=== PATIENT | male | born 1975 | race Caucasian/White ===

== ENCOUNTER 2020-04-18 20:29 | Emergency (ER) | payer OTHER ==
[~2020-04-18] VITALS: Ht 170.2 cm; Wt 76.0 kg
--- NOTE | 2020-04-18 21:22 | NUR ---
PT IN GOWN IN [facility]. DR HOPSON AT BS. PT EDUCATED ON NEED TO NOT COVER HIMSELF WITH XTRA CLOTHING, AND VERBALIZES UNDERSTANDING OF WHY THIS RN WON'T PROVIDE BLANKET AT THIS TIME. ORDERS RECEIVED FOR ANTIPYRETICS. PT VERBALIZES UNDERSTANDING OF POC. PT ATTACHED TO VS MONITORS AT THIS TIME. XRAY AT BS AT THIS TIME WITH PT.
[2020-04-18] MEDS ORDERED: ACETAMINOPHEN 325 MG TABLET ONE (21:24)
[2020-04-18] MEDS ORDERED: IBUPROFEN 600 MG TABLET ONE (21:24)
[2020-04-18] MEDS ORDERED: ONDANSETRON ODT 4 MG ONE (21:25)
--- NOTE | 2020-04-18 21:28 | NUR ---
PT MEDICATED PER MAR AT THIS TIME.
[2020-04-18] MEDS ORDERED: ONDANSETRON 2MG/ML, 2ML IVPush ONE (21:30)
[2020-04-18] MEDS ORDERED: ACETAMINOPHEN 325 MG TABLET PO ONE (21:30)
[2020-04-18] MEDS ORDERED: SODIUM CHLORIDE FLUSH 10ML SYR IVF ONE (21:30)
[2020-04-18] MEDS ORDERED: SODIUM CHLORIDE 0.9% 1,000ML IVBOLUS ONE (21:30)
[2020-04-18] MEDS ORDERED: IBUPROFEN 600 MG TABLET PO ONE (21:30)
--- NOTE | 2020-04-18 21:53 | NUR ---
PIV ACCESS ESTABLISHED. BC X 1 AND LABS DRAWN AT THIS TIME. IV FLUIDS INITIATED PER MAY. PT RESTING COMFORTABLY IN [facility] ATTACHED TO CARDIAC AND VS MONITORS. VSS AT THIS TIME. PT HAS CALL LIGHT WITHIN REACH.
[2020-04-18] MEDS ORDERED: OMNIPAQUE 350 MG/ML, 100ML BOTTLE ONE (22:00)
[2020-04-18 22:30] LABS: ALANINE AMINOTRANSFERASE 86 U/L (12-78); ALBUMIN 3.7 g/dL (3.4-5.0); ANION GAP 4 mmol/L (5-15); CHLORIDE 101 mmol/L (98-107)
[2020-04-18 22:32] LABS: ALKALINE PHOSPHATASE 152 U/L (45-117); BILIRUBIN,TOTAL 0.3 mg/dL (0.2-1.0); TOTAL PROTEIN 7.7 g/dL (6.4-8.2)
--- NOTE | 2020-04-18 22:51 | NUR ---
pt to vt via [facility] at this time.
[2020-04-18 22:56] LABS: BASOPHILS % (AUTO) 0 % (0-1); EOSINOPHILS % (AUTO) 0 % (1-7); LYMPHOCYTES % (AUTO) 10 % (22-44); MEAN CORPUSCULAR HGB CONC 35.2 g/dL (33.2-36.2); MEAN PLATELET VOLUME 9.4 fL (7.4-10.4); MONOCYTES % (AUTO) 8 % (2-9); NEUTROPHILS % (AUTO) 82 % (42-75); PLATELET COUNT 112 x10^3/uL (130-400); RED BLOOD COUNT 4.73 x10^6/uL (4.38-5.82); RED CELL DISTRIBUTION WIDTH 12.7 % (9.4-14.8)
[2020-04-18 23:01] LABS: MD NO
[2020-04-19 00:51] VITALS: BP 132/74
== END 2020-04-19 00:53 | disposition home or self-care (01) ==
LOC: ED 23:14
DX: U07.1 COVID-19 (principal); J12.9 Viral pneumonia, unspecified; R50.9 Fever, unspecified; R05 Cough; M79.10 Myalgia, unspecified site; R06.02 Shortness of breath; R11.2 Nausea with vomiting, unspecified
CPT/HCPCS: 36415; 71045; 71275; 80053; 83605; 85025; 87040; 96361; 96374; 99285; J2405; J7030; Q9967

== ENCOUNTER 2020-04-21 14:37 | Inpatient (IN) | payer OTHER ==
[~2020-04-21] VITALS: Ht 172.7 cm; Wt 76.8 kg
--- NOTE | 2020-04-21 15:20 | NUR ---
RN at bedside, provider at bedside. Pt diaphoretic, flushed, tachypnic. Hooked up to metal smelter. 02 sats 90% RA, placed on 2L nasal cannula.
[2020-04-21] MEDS ORDERED: SODIUM CHLORIDE 0.9% 1,000ML IVBOLUS ONE (15:30)
--- NOTE | 2020-04-21 15:57 | NUR ---
PT HAS POS COVID. SYMPTOMS WEAKNESS, FEVER, SOB, COUGH. FEELING HORRIBLE. 10 DAY. PT IS FLUSHED, NOT IN RESP DISTRESS, DENIES CP. NO N/V PIV, LABS, BLOOD CULUTRES. IVF
[2020-04-21 16:03] LABS: BASOPHILS % (AUTO) 0 % (0-1); EOSINOPHILS % (AUTO) 0 % (1-7); LYMPHOCYTES % (AUTO) 8 % (22-44); MEAN CORPUSCULAR HGB CONC 35.3 g/dL (33.2-36.2); MEAN PLATELET VOLUME 9.1 fL (7.4-10.4); MONOCYTES % (AUTO) 8 % (2-9); NEUTROPHILS % (AUTO) 84 % (42-75); PLATELET COUNT 147 x10^3/uL (130-400); RED BLOOD COUNT 4.75 x10^6/uL (4.38-5.82); RED CELL DISTRIBUTION WIDTH 12.7 % (9.4-14.8)
[2020-04-21 16:08] LABS: MD NO
[2020-04-21 16:20] LABS: ALBUMIN 3.5 g/dL (3.4-5.0); ANION GAP 8 mmol/L (5-15); CALCIUM 8.5 mg/dL (8.5-10.1); CHLORIDE 102 mmol/L (98-107)
[2020-04-21 16:27] LABS: ALANINE AMINOTRANSFERASE 81 U/L (12-78); ALKALINE PHOSPHATASE 160 U/L (45-117); BILIRUBIN,TOTAL 0.6 mg/dL (0.2-1.0); CREATININE 1.26 mg/dL (0.7-1.3); TOTAL PROTEIN 8.1 g/dL (6.4-8.2)
[2020-04-21 16:47] LABS: D-DIMER (DIC) 0.69 ug/mlFEU (0.00-0.52)
[2020-04-21] MEDS ORDERED: CEFTRIAXONE PMX 1GM/50ML 50 ML IVPB ONE (17:00)
[2020-04-21] MEDS ORDERED: DOXYCYCLINE 100MG TABLET PO ONE (17:00)
[2020-04-21] MEDS ORDERED: ACETAMINOPHEN 500 MG TABLET PO ONE (17:00)
[2020-04-21] MEDS ORDERED: DEXAMETHASONE 4 MG/ML, 1ML IV ONE (17:00)
[2020-04-21] MEDS ORDERED: DEXAMETHASONE 4 MG/ML, 1ML ONE (17:03)
[2020-04-21] MEDS ORDERED: ACETAMINOPHEN 500 MG TABLET ONE (17:03)
[2020-04-21] MEDS ORDERED: CEFTRIAXONE PMX 1GM/50ML 50 ML ONE (17:03)
[2020-04-21] MEDS ORDERED: DOXYCYCLINE 100MG TABLET ONE (17:03)
[2020-04-21] MEDS ORDERED: THIAMINE 100MG TABLET ONE (17:12)
[2020-04-21] MEDS: ASCORBIC ACID 500 MG TABLET PO SCH (17:13)
[2020-04-21] MEDS ORDERED: ASCORBIC ACID 500 MG TABLET ONE (17:13)
[2020-04-21] MEDS ORDERED: GABA600T7 PO (17:16)
[2020-04-21] MEDS ORDERED: CARB200T PO (17:16)
[2020-04-21] MEDS ORDERED: ACETAMINOPHEN 325 MG TABLET PO PRN (17:30)
[2020-04-21] MEDS ORDERED: THIAMINE 100MG TABLET PO ONE (17:30)
[2020-04-21] MEDS ORDERED: ENALAPRILAT 1.25 MG/ML, 2ML IVPush PRN (17:30)
[2020-04-21] MEDS ORDERED: ONDANSETRON 2MG/ML, 2ML IVPush PRN (17:30)
[2020-04-21] MEDS ORDERED: SODIUM CHLORIDE FLUSH 10ML SYR IVF PRN (17:30)
[2020-04-21] MEDS ORDERED: ONDANSETRON ODT 4 MG PO PRN (17:30)
[2020-04-21] MEDS ORDERED: SODIUM CHLORIDE 0.9% 1,000 ML IV ONE (17:30)
--- NOTE | 2020-04-21 17:30 | NUR ---
PT RESTING, MEDICATED PER ORDERS. GIVEN WARM BLANKETS. VSS
[2020-04-21] MEDS ORDERED: REMDESIVIR 200 MG in SODIUM CHLORIDE 0.9% 250 ML IVPB ONE (18:00)
--- NOTE | 2020-04-21 18:05 | NUR ---
REPORT TO RADHA.
[2020-04-21 18:39] VITALS: BP 122/74
[2020-04-21] MEDS: ENOXAPARIN 80 MG/0.8 ML SQ SCH (18:53)
[2020-04-21 19:41] VITALS: BP 119/74
[2020-04-21] MEDS ORDERED: FAMOTIDINE 20 MG TABLET PO SCH (21:00)
[2020-04-22 01:54] VITALS: BP 120/75
[2020-04-22] MEDS: ENOXAPARIN 80 MG/0.8 ML SQ SCH ×2 (06:11→17:10)
[2020-04-22 07:28] LABS: BASOPHILS % (AUTO) 0 % (0-1); EOSINOPHILS % (AUTO) 0 % (1-7); LYMPHOCYTES % (AUTO) 19 % (22-44); MEAN CORPUSCULAR HEMOGLOBIN 31.9 pg (27.5-34.5); MEAN PLATELET VOLUME 8.4 fL (7.4-10.4); MONOCYTES % (AUTO) 14 % (2-9); NEUTROPHILS % (AUTO) 66 % (42-75); PLATELET COUNT 155 x10^3/uL (130-400); RED BLOOD COUNT 4.14 x10^6/uL (4.38-5.82); RED CELL DISTRIBUTION WIDTH 12.5 % (9.4-14.8)
[2020-04-22 07:33] LABS: MD NO
[2020-04-22 07:36] LABS: CHLORIDE 110 mmol/L (98-107)
[2020-04-22 07:48] LABS: ALANINE AMINOTRANSFERASE 55 U/L (12-78); ALBUMIN 2.8 g/dL (3.4-5.0); ALKALINE PHOSPHATASE 121 U/L (45-117); ANION GAP 9 mmol/L (5-15); BILIRUBIN,TOTAL 0.3 mg/dL (0.2-1.0); CALCIUM 8.2 mg/dL (8.5-10.1); CREATININE 0.86 mg/dL (0.7-1.3); TOTAL PROTEIN 6.7 g/dL (6.4-8.2)
[2020-04-22 08:02] VITALS: BP 131/84
[2020-04-22] MEDS: ASCORBIC ACID 500 MG TABLET PO SCH ×2 (09:06→17:09)
[2020-04-22] MEDS: ZINC SULFATE 220 MG CAPSULE PO SCH (09:06)
[2020-04-22] MEDS: CHOLECALCIFEROL 1,000 UNIT TABLET PO SCH (09:06)
[2020-04-22] MEDS: DOXYCYCLINE 100MG TABLET PO SCH ×2 (09:06→21:18)
[2020-04-22] MEDS: DEXAMETHASONE 4 MG/ML, 1ML IVPush SCH (09:07)
[2020-04-22] MEDS: NICOTINE 14MG/24 HR PATCH.TD24 TD SCH (11:30)
[2020-04-22] MEDS ORDERED: CARBAMAZEPINE 200 MG TABLET ONE (12:07)
[2020-04-22] MEDS: GABAPENTIN 300 MG CAPSULE PO SCH ×3 (12:13→21:18)
[2020-04-22] MEDS: CARBAMAZEPINE 200 MG TABLET PO SCH ×2 (12:13→21:18)
[2020-04-22 14:23] VITALS: BP 149/90
[2020-04-22] MEDS: CEFTRIAXONE PMX 1GM/50ML 50 ML IV SCH (17:10)
[2020-04-22] MEDS: REMDESIVIR 100 MG in SODIUM CHLORIDE 0.9% 250 ML IVPB SCH (18:37)
[2020-04-22 20:14] VITALS: BP 131/86
[2020-04-23 00:59] VITALS: BP 135/81
[2020-04-23 04:55] LABS: ALANINE AMINOTRANSFERASE 49 U/L (12-78); ALBUMIN 2.7 g/dL (3.4-5.0); ANION GAP 6 mmol/L (5-15); CALCIUM 8.2 mg/dL (8.5-10.1); CHLORIDE 109 mmol/L (98-107)
[2020-04-23 04:58] LABS: ALKALINE PHOSPHATASE 106 U/L (45-117); BILIRUBIN,TOTAL 0.3 mg/dL (0.2-1.0); CREATININE 0.97 mg/dL (0.7-1.3); TOTAL PROTEIN 6.7 g/dL (6.4-8.2)
[2020-04-23] MEDS: GABAPENTIN 300 MG CAPSULE PO SCH ×3 (06:02→20:24)
[2020-04-23] MEDS: ENOXAPARIN 80 MG/0.8 ML SQ SCH ×2 (06:03→17:05)
[2020-04-23] MEDS: CARBAMAZEPINE 200 MG TABLET PO SCH ×2 (06:03→14:35)
[2020-04-23 06:11] VITALS: BP 121/74
[2020-04-23] MEDS ORDERED: BENZONATATE 100 MG CAPSULE ONE (10:08)
[2020-04-23] MEDS: DEXAMETHASONE 4 MG/ML, 1ML IVPush SCH (10:15)
[2020-04-23] MEDS: DOXYCYCLINE 100MG TABLET PO SCH ×2 (10:15→20:24)
[2020-04-23] MEDS: ZINC SULFATE 220 MG CAPSULE PO SCH (10:15)
[2020-04-23] MEDS: ASCORBIC ACID 500 MG TABLET PO SCH ×2 (10:15→17:05)
[2020-04-23] MEDS: BENZONATATE 100 MG CAPSULE PO SCH ×3 (10:16→20:24)
[2020-04-23] MEDS: CHOLECALCIFEROL 1,000 UNIT TABLET PO SCH (10:16)
[2020-04-23] MEDS: NICOTINE 14MG/24 HR PATCH.TD24 TD SCH (10:16)
[2020-04-23] MEDS ORDERED: GUAIFENESIN 100 MG/5 ML, 5ML UDC PO PRN (10:30)
[2020-04-23 14:00] VITALS: BP 112/75
[2020-04-23] MEDS: CEFTRIAXONE PMX 1GM/50ML 50 ML IV SCH (17:05)
[2020-04-23] MEDS: REMDESIVIR 100 MG in SODIUM CHLORIDE 0.9% 250 ML IVPB SCH (17:57)
[2020-04-23 20:21] VITALS: BP 121/74
[2020-04-24 00:58] VITALS: BP 125/83
[2020-04-24] MEDS: ENOXAPARIN 80 MG/0.8 ML SQ SCH ×2 (05:36→16:45)
[2020-04-24 06:21] LABS: BASOPHILS % (AUTO) 0 % (0-1); EOSINOPHILS % (AUTO) 0 % (1-7); LYMPHOCYTES % (AUTO) 14 % (22-44); MEAN CORPUSCULAR HGB CONC 35.5 g/dL (33.2-36.2); MEAN PLATELET VOLUME 8.1 fL (7.4-10.4); MONOCYTES % (AUTO) 12 % (2-9); NEUTROPHILS % (AUTO) 74 % (42-75); PLATELET COUNT 221 x10^3/uL (130-400); RED BLOOD COUNT 4.13 x10^6/uL (4.38-5.82); RED CELL DISTRIBUTION WIDTH 12.7 % (9.4-14.8)
[2020-04-24 06:22] LABS: MD NO
[2020-04-24 06:31] LABS: ALANINE AMINOTRANSFERASE 49 U/L (12-78); ALBUMIN 2.7 g/dL (3.4-5.0); ANION GAP 8 mmol/L (5-15); CALCIUM 8.1 mg/dL (8.5-10.1); CHLORIDE 107 mmol/L (98-107)
[2020-04-24 06:38] LABS: ALKALINE PHOSPHATASE 112 U/L (45-117); BILIRUBIN,TOTAL 0.5 mg/dL (0.2-1.0); CREATININE 0.87 mg/dL (0.7-1.3); TOTAL PROTEIN 6.6 g/dL (6.4-8.2)
[2020-04-24 07:57] VITALS: BP 122/76
[2020-04-24] MEDS: GABAPENTIN 300 MG CAPSULE PO SCH ×3 (09:28→21:09)
[2020-04-24] MEDS: DOXYCYCLINE 100MG TABLET PO SCH ×2 (09:28→21:09)
[2020-04-24] MEDS: DEXAMETHASONE 4 MG/ML, 1ML IVPush SCH (09:28)
[2020-04-24] MEDS: VALACYCLOVIR 500MG TABLET PO SCH ×2 (09:28→21:09)
[2020-04-24] MEDS: CARBAMAZEPINE 200 MG TABLET PO SCH ×2 (09:28→21:09)
[2020-04-24] MEDS: CHOLECALCIFEROL 1,000 UNIT TABLET PO SCH (09:29)
[2020-04-24] MEDS: ASCORBIC ACID 500 MG TABLET PO SCH ×2 (09:29→16:44)
[2020-04-24] MEDS: ZINC SULFATE 220 MG CAPSULE PO SCH (09:29)
[2020-04-24] MEDS: BENZONATATE 100 MG CAPSULE PO SCH ×3 (09:29→21:09)
[2020-04-24] MEDS: NICOTINE 14MG/24 HR PATCH.TD24 TD SCH (11:30)
[2020-04-24 12:50] VITALS: BP 117/74
[2020-04-24] MEDS: CEFTRIAXONE PMX 1GM/50ML 50 ML IV SCH (17:55)
[2020-04-24] MEDS: REMDESIVIR 100 MG in SODIUM CHLORIDE 0.9% 250 ML IVPB SCH (18:54)
[2020-04-24 19:50] VITALS: BP 113/69
[2020-04-25 04:00] VITALS: BP 116/77
[2020-04-25] MEDS: ENOXAPARIN 80 MG/0.8 ML SQ SCH (06:01)
[2020-04-25] MEDS: CARBAMAZEPINE 200 MG TABLET PO SCH (06:07)
[2020-04-25] MEDS: GABAPENTIN 300 MG CAPSULE PO SCH (06:07)
[2020-04-25 06:22] LABS: ALANINE AMINOTRANSFERASE 130 U/L (12-78); ALBUMIN 2.7 g/dL (3.4-5.0); ANION GAP 5 mmol/L (5-15); CALCIUM 8.5 mg/dL (8.5-10.1); CHLORIDE 108 mmol/L (98-107)
[2020-04-25 06:25] LABS: ALKALINE PHOSPHATASE 154 U/L (45-117); BILIRUBIN,TOTAL 0.3 mg/dL (0.2-1.0); TOTAL PROTEIN 6.7 g/dL (6.4-8.2)
[2020-04-25 06:53] VITALS: BP 117/80
[2020-04-25] MEDS: DEXAMETHASONE 4 MG/ML, 1ML IVPush SCH (08:21)
[2020-04-25] MEDS: BENZONATATE 100 MG CAPSULE PO SCH (08:21)
[2020-04-25] MEDS: DOXYCYCLINE 100MG TABLET PO SCH (08:21)
[2020-04-25] MEDS: ASCORBIC ACID 500 MG TABLET PO SCH (08:21)
[2020-04-25] MEDS: ZINC SULFATE 220 MG CAPSULE PO SCH (08:21)
[2020-04-25] MEDS: CHOLECALCIFEROL 1,000 UNIT TABLET PO SCH (08:21)
[2020-04-25] MEDS ORDERED: DEXA6TAB6 PO (10:01)
[2020-04-25] MEDS ORDERED: BENZ-17 PO (10:01)
== END 2020-04-25 11:30 | disposition home or self-care (01) | DRG 871 ==
LOC: ED 15:49 → SUATTDRO 16:58 → EDIP 17:03 → 4EST 18:25
PROVIDERS: ADMIT Hospitalist; ATTEND Hospitalist
DX: A41.89 Other specified sepsis (principal); G93.41 Metabolic encephalopathy; J12.82 Pneumonia due to coronavirus disease 2019; J15.9 Unspecified bacterial pneumonia; J96.01 Acute respiratory failure with hypoxia; U07.1 COVID-19; F41.9 Anxiety disorder, unspecified; Z79.899 Other long term (current) drug therapy
CPT/HCPCS: 36415; 71045; 80053; 82728; 83605; 83615; 83735; 84145; 85025; 85049; 85379; 85384; 85610; 85730; 86140; 87040; 93005; 96374; 96375; 99285; G0378; J0696; J1100; J1650; J7030; J7050